=== PATIENT | female | born 1980 | race Caucasian/White ===

== ENCOUNTER 2018-09-06 12:54 | Observation (INO) | payer OTHER ==
[2018-09-06 14:35] LABS: PLATELET COUNT 337 10^3/uL (150-400)
--- NOTE | 2018-09-06 15:06 | EDPHY ---
HPI/HX/ROS/PE/MDM Narrative: The patient was evaluated and managed by the physician's surgeon's assistant. My cosignature indicates that I reviewed the chart and I agree with the findings and plan of care as documented. I am the secondary supervising physician. ( Justine López) CLINICAL IMPRESSION: Acute appendicitis ASSESSMENT/PLAN: 38-year-old female presents to the emergency department with approximately 24 hr of right lower quadrant abdominal pain associated with nausea, 1 episode of nonbilious nonbloody vomiting last night, diarrhea, and anorexia today. Vital signs stable, afebrile although she is tachycardic at 107. Ultrasound shows uterine leiomyomas, nonvisualized right ovary. No evidence of UTI and she is not . No leukocytosis, renal insufficiency, electrolyte imbalance. CT confirms mild appendicitis with no evidence of perforation or abscess. Discussed with Dr. Winters. Patient was started on antibiotics in the ED and he will assess the patient here. Kept NPO. Stable for admission to surgery for appendectomy. DIFFERENTIAL DX: Abdominal pain includes but not limited to urinary tract infection, pyelonephritis, infection, ectopic , salpingitis, TOA, ovarian torsion, ovarian cyst, endometriosis, uterine fibroids, acute appendicitis, acute diverticulitis, small-bowel obstruction, constipation ED PROCEDURES: See lab and/or imaging results below ED COURSE: 3:00 p.m.: Lab and urine studies discussed with the patient. She continues to decline IV analgesics. Will start with pelvic and abdominal ultrasound but I did discuss if these are negative I would recommend CT abdomen pelvis to rule out early appendicitis. Patient agrees 4:20 p.m.: Case discussed with Dr. Her from Radiology. No visualized right ovary or appendix. Patient has a large right adnexal uterine fibroid measuring 6.7 cm. Left ovary appears normal. Discussed results with patient. Will plan to CT to rule out underlying appendicitis. 5:00 p.m.: Discussed CT findings with Dr. Linares, positive for mild appendicitis, multiple uterine leiomyomas and numerous hypodensities in both kidneys. Patient made aware of results. She has been NPO since last night. She reports in a rash to penicillin but believe she has taken cephalosporins before. 5:05 p.m.: Discussed with Dr. Winters. He would like patient received 3 g of cefoxitin based on weight. She has been kept NPO. He will come to ED to evaluate. CHIEF COMPLAINT: Right lower quadrant abdominal pain HPI: 38-year-old female with a past medical history of hyperthyroidism and hypertension presents to the emergency department approximately 24 hr of right lower quadrant abdominal pain. This is associated with nausea, 1 episode of nonbilious nonbloody vomiting yesterday, decreased appetite and diarrhea. No reported fevers. Pain was not worsened by eating yesterday. Pain began in the abdomen and she has no associated flank pain or UTI symptoms. No abnormal discharge. She denies . No prior abdominal surgery. She has not taken anything for pain today but is refusing pain medications. She does report a history of kidney stones but reports this pain is very different. PAST MEDICAL HISTORY: Hyperthyroidism, hypertension, obesity, IBS, passed kidney stones See nurse/triage notes for additional history if applicable Pertinent Past Surgical History: None reported Family History: Noncontributory Social History: Nonsmoker, does not drink alcohol REVIEW OF SYSTEMS: All other systems negative Constitutional: No fever, no chills, positive for appetite change. Cardiovascular: No chest pain, no palpitations. Respiratory: No cough, no shortness of breath. Gastrointestinal: Positive for abdominal pain, no vomiting, positive for diarrhea. Genitourinary: No hematuria, dysuria, flank pain, pelvic pain Musculoskeletal: No back pain, joint swelling, joint pain, myalgias. Skin: No rashes, color change. PHYSICAL EXAM: General Appearance: Alert, oriented, appropriate, cooperative, NAD, well hydrated, non-toxic appearing, overweight, VSS, no hypoxia. HEENT: Oropharynx clear is no erythema or exudates, no tonsillar hypertrophy or asymmetry. Dentition without abnormality. Respiratory: There are no retractions, lungs are clear to auscultation. Cardiac: Regular rate and rhythm, no murmurs or gallops. Gastrointestinal: Abdomen is soft, tender to palpation of right lower quadrant, no rigidity or guarding, no rebound pain, bowel sounds normal, no masses/hernia , or focal peritoneal findings. No flank pain Neurological: Alert and oriented x 3, CN 2-12 grossly intact, MEDICAL DECISION MAKING: Patient was seen independently. Secondary supervising physician at time of evaluation was Dr. López. Diagnosis: Acute appendicitis. New, requires workup Summary: See Assessment and Plan for summary of ED visit Clinical lab tests: ordered / reviewed. Independent visualization of images, tracing, or specimens: Yes. Decision to obtain medical records or history from someone other than the patient: No Review / Summarize previous medical records: None available Discussed patient with another provider: Dr. López, Dr. Winters Patient Progress: Stable. (Fabian Guevara) - Data Points Imaging Results: Imaging Impressions Abdomen Ultrasound 09/06/18 15:02 Impression: Indeterminate study for appendicitis as a normal nor an abnormal appendix is visualized. Results called and discussed with Fabian Guevara on 09/06/2018 at 1615 hours. Pelvic/Renal Ultrasound 09/06/18 15:02 Impression: 6.7 cm soft tissue mass in the right adnexal region adjacent to the myometrium which could be an exophytic leiomyoma. Similar smaller lesion is seen in the left adnexal region measuring 3.6 cm. Right ovary is not visualized. Consider pelvic MRI without and with contrast for further evaluation. Results called and discussed with Fabian Guevara PA-C, at 09/06/2018 1610 hours. Laboratory Results: Laboratory Results 09/06/18 14:23 09/06/18 14:23 09/06/18 09/06/18 09/06/18 15:10 14:23 14:23 WBC RBC Hgb Hct MCV MCH MCHC RDW Plt Count MPV Neut % (Auto) Lymph % (Auto) [place] % (Auto) Eos % (Auto) Baso % (Auto) Nucleat RBC Rel Count Absolute Neuts (auto) Absolute Lymphs (auto) Absolute Monos (auto) Absolute Eos (auto) Absolute Basos (auto) Absolute Nucleated RBC Immature Gran % Immature Gran # Sodium 137 mEq/L mEq/L (135-145) Potassium 3.9 mEq/L mEq/L (3.5-5.2) Chloride 107 mEq/L mEq/L (97-110) Carbon Dioxide 18 mEq/l L mEq/l (22-31) Anion Gap 12 mEq/L mEq/L (6-14) BUN 8 mg/dL mg/dL (7-23) Creatinine 0.8 mg/dL mg/dL (0.6-1.0) Estimated GFR > 60 Glucose 113 mg/dL H mg/dL (70-100) Calcium 9.3 mg/dL mg/dL (8.5-10.4) Beta HCG, Qual NEGATIVE Urine Color YELLOW Urine Appearance CLEAR Urine pH 6.0 (5.0-7.5) Ur Specific [place] 1.011 (1.002-1.030) Urine Protein NEGATIVE (NEGATIVE) Urine Ketones NEGATIVE (NEGATIVE) Urine Blood NEGATIVE (NEGATIVE) Urine Nitrate NEGATIVE (NEGATIVE) Urine Bilirubin NEGATIVE (NEGATIVE) Urine Urobilinogen NEGATIVE EU EU (0.2-1.0) Ur Leukocyte Esterase NEGATIVE (NEGATIVE) Urine Glucose NEGATIVE (NEGATIVE) 09/06/18 14:23 WBC 8.96 10^3/uL 10^3/uL (3.80-9.50) RBC 5.54 10^6/uL H 10^6/uL (4.18-5.33) Hgb 14.9 g/dL g/dL (12.6-16.3) Hct 45.8 % % (38.0-47.0) MCV 82.7 fL fL (81.5-99.8) MCH 26.9 pg L pg (27.9-34.1) MCHC 32.5 g/dL g/dL (32.4-36.7) RDW 14.0 % % (11.5-15.2) Plt Count 337 10^3/uL 10^3/uL (150-400) MPV 10.1 fL fL (8.7-11.7) Neut % (Auto) 74.9 % H % (39.3-74.2) Lymph % (Auto) 17.4 % % (15.0-45.0) [place] % (Auto) 6.1 % % (4.5-13.0) Eos % (Auto) 1.0 % % (0.6-7.6) Baso % (Auto) 0.4 % % (0.3-1.7) Nucleat RBC Rel Count 0.0 % % (0.0-0.2) Absolute Neuts (auto) 6.70 10^3/uL H 10^3/uL (1.70-6.50) Absolute Lymphs (auto) 1.56 10^3/uL 10^3/uL (1.00-3.00) Absolute Monos (auto) 0.55 10^3/uL 10^3/uL (0.30-0.80) Absolute Eos (auto) 0.09 10^3/uL 10^3/uL (0.03-0.40) Absolute Basos (auto) 0.04 10^3/uL 10^3/uL (0.02-0.10) Absolute Nucleated RBC 0.00 10^3/uL 10^3/uL (0-0.01) Immature Gran % 0.2 % % (0.0-1.1) Immature Gran # 0.02 10^3/uL 10^3/uL (0.00-0.10) Sodium Potassium Chloride Carbon Dioxide Anion Gap BUN Creatinine Estimated GFR Glucose Calcium Beta HCG, Qual Urine Color Urine Appearance Urine pH Ur Specific [place] Urine Protein Urine Ketones Urine Blood Urine Nitrate Urine Bilirubin Urine Urobilinogen Ur Leukocyte Esterase Urine Glucose Medications Given: Discontinued Medications Sodium Chloride (Ns) 1,000 mls @ 0 mls/hr IV EDNOW ONE; Wide Open PRN Reason: Protocol Stop: 09/06/18 15:13 Last Admin: 09/06/18 15:18 Dose: 1,000 mls General Time Seen by Provider: 09/06/18 14:20 Initial Vital Signs: Initial Vital Signs Temperature (C) 36.6 C 09/06/18 13:13 Heart Rate 110 H 09/06/18 13:13 Respiratory Rate 16 09/06/18 13:13 Blood Pressure 137/115 H 09/06/18 13:13 O2 Sat (%) 98 09/06/18 13:13 O2 Delivery Mode Room Air Allergies/Adverse Reactions: Penicillins Allergy (Verified 12/29/18 13:13) Home Medications: Medication Instructions Recorded Atenolol 09/06/18 Blisovi 24 Fe Tablet 09/06/18 Escitalopram Oxalate 09/06/18 Omeprazole 09/06/18 Departure - Departure Disposition: [facility] Inpatient Acute Clinical Impression: Acute appendicitis Qualifiers: Acute appendicitis type: with localized peritonitis Appendicitis gangrene presence: without gangrene Appendicitis perforation presence: without perforation Appendicitis abscess presence: without abscess Qualified Code(s): K35.30 - Acute appendicitis with localized peritonitis, without perforation or gangrene Condition: Good Referrals: Fauzia Bowles MD [Primary Care Provider] - As per Instructions
[2018-09-06] MEDS ORDERED: NS 1,000 ML IV ONE ×2 (15:12→20:18)
[2018-09-06] MEDS ORDERED: IOPAMIDOL (ISOVUE 370) 100 ML BTL IV ONE (16:22)
[2018-09-06] MEDS ORDERED: NS IV ONE (17:06)
[2018-09-06] MEDS ORDERED: CEFOXITIN SODIUM IV ONE (17:06)
[2018-09-06] MEDS ORDERED: IBUPROFEN 600 MG TAB PO PRN (17:42)
[2018-09-06] MEDS ORDERED: ACETAMINOPHEN 500 MG TAB PO PRN (17:42)
[2018-09-06] MEDS ORDERED: LR 1,000 ML IV SCH (18:00)
--- NOTE | 2018-09-06 18:14 | PDGENHP ---
History and Physical - Chief Complaint abdominal pain - History of Present Illness 38 y/o female presented to the ED with abdominal pain localizing to the RLQ. She reports anorexia and nausea, but no emesis or diarrhea. She denies fever. She was seen in the ED by Fabian Guevara PA-C and surgical consultation was requested when an abdominal CT showed an enlarged appendix. She has not received narcotics in the ED and felt a little better after receiving IV fluids. History Information - Allergies/Home Medication List Allergies/Adverse Reactions: Penicillins Allergy (Mild, Verified 09/06/18 18:14) Rash Home Medications: Atenolol 09/06/18 [Last Taken Unknown] Blisovi 24 Fe Tablet 09/06/18 [Last Taken Unknown] Escitalopram Oxalate 09/06/18 [Last Taken Unknown] Omeprazole 09/06/18 [Last Taken Unknown] I have personally reviewed and updated: family history, medical history, social history, surgical history - Past Medical History hypertension, psychiatric history (depression) Additional medical history: LMP 08/12/18 - Surgical History Additional surgical history: ankle surgery - Family History Positive for: non-pertinent - Social History Smoking Status: Never smoked Alcohol Use: Occasionally (occasionally) Drug Use: Marijuana 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 Review of Systems Review of Systems: Constitutional: Reports: fever (denies) Gastrointestinal: Reports: abdominal pain, nausea Genitourinary: Reports: no symptoms Neurological: Reports: depressed Physical Exam Physical Exam: Temp Pulse Resp BP Pulse Ox 36.6 C 113 H 18 146/89 H 95 09/06/18 13:13 09/06/18 17:28 09/06/18 17:28 09/06/18 17:28 09/06/18 17:28 Constitutional: appears nourished Eyes: anicteric sclera Cardiovascular: regular rate and rhythym, tachycardia Peripheral Pulses: 4+: dorsalis-pedis (R), dorsalis-pedis (L) Respiratory: no respiratory distress, no rales or rhonchi, clear to auscultation Gastrointestinal: normoactive bowel sounds, tenderness (R mid abdomen mild tenderness to deep palpation, no guarding) Skin: warm, normal color, no rashes or abrasions Neurologic: AAOx3 Psychiatric: interacting appropriately, not anxious, not encephalopathic Lymph, Heme, Immunologic: no cervical LAD, no supraclavicular LAD Lab Data & Imaging Review 09/06/18 14:23 09/06/18 14:23 WBC 8.96 10^3/uL (3.80-9.50) 09/06/18 14:23 RBC 5.54 10^6/uL (4.18-5.33) H 09/06/18 14:23 Hgb 14.9 g/dL (12.6-16.3) 09/06/18 14:23 Hct 45.8 % (38.0-47.0) 09/06/18 14:23 MCV 82.7 fL (81.5-99.8) 09/06/18 14:23 MCH 26.9 pg (27.9-34.1) L 09/06/18 14:23 MCHC 32.5 g/dL (32.4-36.7) 09/06/18 14:23 RDW 14.0 % (11.5-15.2) 09/06/18 14:23 Plt Count 337 10^3/uL (150-400) 09/06/18 14:23 MPV 10.1 fL (8.7-11.7) 09/06/18 14:23 Neut % (Auto) 74.9 % (39.3-74.2) H 09/06/18 14:23 Lymph % (Auto) 17.4 % (15.0-45.0) 09/06/18 14:23 [place] % (Auto) 6.1 % (4.5-13.0) 09/06/18 14:23 Eos % (Auto) 1.0 % (0.6-7.6) 09/06/18 14:23 Baso % (Auto) 0.4 % (0.3-1.7) 09/06/18 14:23 Nucleat RBC Rel Count 0.0 % (0.0-0.2) 09/06/18 14:23 Absolute Neuts (auto) 6.70 10^3/uL (1.70-6.50) H 09/06/18 14:23 Absolute Lymphs (auto) 1.56 10^3/uL (1.00-3.00) 09/06/18 14:23 Absolute Monos (auto) 0.55 10^3/uL (0.30-0.80) 09/06/18 14:23 Absolute Eos (auto) 0.09 10^3/uL (0.03-0.40) 09/06/18 14:23 Absolute Basos (auto) 0.04 10^3/uL (0.02-0.10) 09/06/18 14:23 Absolute Nucleated RBC 0.00 10^3/uL (0-0.01) 09/06/18 14:23 Immature Gran % 0.2 % (0.0-1.1) 09/06/18 14:23 Immature Gran # 0.02 10^3/uL (0.00-0.10) 09/06/18 14:23 Sodium 137 mEq/L (135-145) 09/06/18 14:23 Potassium 3.9 mEq/L (3.5-5.2) 09/06/18 14:23 Chloride 107 mEq/L (97-110) 09/06/18 14:23 Carbon Dioxide 18 mEq/l (22-31) L 09/06/18 14:23 Anion Gap 12 mEq/L (6-14) 09/06/18 14:23 BUN 8 mg/dL (7-23) 09/06/18 14:23 Creatinine 0.8 mg/dL (0.6-1.0) 09/06/18 14:23 Estimated GFR > 60 09/06/18 14:23 Glucose 113 mg/dL (70-100) H 09/06/18 14:23 Calcium 9.3 mg/dL (8.5-10.4) 09/06/18 14:23 Beta HCG, Qual NEGATIVE 09/06/18 14:23 Urine Color YELLOW 09/06/18 15:10 Urine Appearance CLEAR 09/06/18 15:10 Urine pH 6.0 (5.0-7.5) 09/06/18 15:10 Ur Specific [place] 1.011 (1.002-1.030) 09/06/18 15:10 Urine Protein NEGATIVE (NEGATIVE) 09/06/18 15:10 Urine Ketones NEGATIVE (NEGATIVE) 09/06/18 15:10 Urine Blood NEGATIVE (NEGATIVE) 09/06/18 15:10 Urine Nitrate NEGATIVE (NEGATIVE) 09/06/18 15:10 Urine Bilirubin NEGATIVE (NEGATIVE) 09/06/18 15:10 Urine Urobilinogen NEGATIVE EU (0.2-1.0) 09/06/18 15:10 Ur Leukocyte Esterase NEGATIVE (NEGATIVE) 09/06/18 15:10 Urine Glucose NEGATIVE (NEGATIVE) 09/06/18 15:10 Visualized and Interpreted imaging results: Yes Interpretation: CT scan reviewed, mild dilatation of the appendix without fecalith/minimal amanda-appendiceal fat stranding, no free air, no free fluid Assessment & Plan Assessment: Acute appendicitis (Acute) HTN obesity (BMI 39.9) We discussed the findings on CT and the management options including laparoscopic appendectomy vs. antibiotics. She is an ideal candidate for non- operative management with antibiotics as she has early appendicitis without an appendicolith, normal wbc and no fever. She would like to avoid surgery if possible. I recommended she be admitted overnight for IV antibiotic therapy and observation. If she progresses in her symptoms I would recommend proceeding with surgery. We discussed the success rate of antibiotic therapy and the risk of failure (25%). If she is improved in the morning I would recommend completing therapy as an outpatient with one full week of po antibiotics. Plan: Admit observation IV Mefoxin 2 gm IVPB [id number] when sufficiently improved will DC home with po Levaquin and Radha Winters MD, FACS
[2018-09-06] MEDS: cefOXitin SODIUM 2 GM in NS 100 ML IV SCH (23:46)
[2018-09-06] MEDS: PANTOPRAZOLE SODIUM 40 MG TAB PO SCH (23:47)
[2018-09-06] MEDS: ATENOLOL 25 MG TAB PO SCH (23:47)
[2018-09-07 05:02] LABS: PLATELET COUNT 301 10^3/uL (150-400)
[2018-09-07] MEDS: cefOXitin SODIUM 2 GM in NS 100 ML IV SCH (05:27)
--- NOTE | 2018-09-07 08:38 | PDDCSUM ---
Discharge Summary Discharge Summary: #[id number] Naveen Winters MD, FACS
[2018-09-07] MEDS: ATENOLOL 25 MG TAB PO SCH (08:56)
[2018-09-07] MEDS: PANTOPRAZOLE SODIUM 40 MG TAB PO SCH (08:56)
[2018-09-07] MEDS ORDERED: ESCITALOPRAM OXALATE 10 MG TAB PO SCH (09:00)
--- NOTE | 2018-09-07 09:02 | ASMTLACE ---
LACE Length of stay for Answers: Less than 1 day current admission Acuity / Level of Answers: No Care: Did the patient have an inpatient admission? # of Emergency department Answers: 1-2 visits in the last 6 months Score: 1 Date Signed: 09/07/2018 09:02 AM Electronically Signed By:Nani Olivera RN
--- NOTE | 2018-09-07 09:04 | ASMTDCNOTE ---
Case Management Discharge Discharge Order Complete? Answers: Yes Patient to Obtain Answers: Independently Medications Transportation Arranged Answers: Family/Friends Discharge Comments Notes: Chart reviewed. 38 year old female admitted for appendectomy. Medically cleared for discharge to home. No needs. Date Signed: 09/07/2018 09:04 AM Electronically Signed By:Nani Olivera RN
--- NOTE | 2018-09-07 09:52 | GDS ---
DISCHARGE DIAGNOSES: 1. Acute appendicitis. 2. Hypertension. 3. Obesity. 4. History of depression. 5. Gastroesophageal reflux disease. PROCEDURE PERFORMED: 1. 09/06, ultrasound of the abdomen and pelvis. 2. 09/06. CT scan of the abdomen and pelvis. HOSPITAL COURSE: For details of admission history and physical, please see dictated summary. Briefly, patient is a 38-year-old female presented with 1- day history of abdominal pain. She was seen and evaluated in the emergency room by Fabian Guevara PA-C, and evaluation included ultrasound of the abdomen, pelvis, and up and subsequently a CT scan when the appendix was non-visualized. This showed early acute appendicitis without fecalith. Surgical consultation was requested. The patient was afebrile, showed normal white blood cell count, and had mild focal tenderness in the right lateral abdomen. I discussed the options of management with her, including surgical appendectomy (laparoscopic) versus antibiotics. Patient was hoping to avoid surgery and chose to be treated with antibiotics. She received 3 g of cefoxitin (Mefoxin) in the emergency department and this was continued at 2 g every 6 hours. She was admitted for observation overnight. She was advanced in her diet, which she tolerated well. Her pain was improved the following morning, and she continued to be afebrile and had a normal white blood cell count prior to discharge. She was switched to oral Levaquin and Flagyl because of a penicillin allergy, and this will continue for an additional 7 days. I gave her my contact information. She will call my office tomorrow for a followup appointment in approximately 1 week and will contact us sooner should she develop increasing abdominal pain, fever, nausea, vomiting. CONDITION AT TIME OF DISCHARGE: Improved. FOLLOWUP: Arranged in 1 week. DISCHARGE MEDICATIONS: Levaquin 750 mg p.o. daily x7 days, metronidazole 500 mg t.i.d. for 7 days. She will resume omeprazole 40 mg p.o. daily, atenolol 25 mg p.o. daily, and alternate Tylenol and ibuprofen for pain. Patient required no narcotic analgesics during her hospital stay. /[id number]/MODL MTDD
[2018-09-07] MEDS ORDERED: metroNIDAZOLE 500 MG TAB PO SCH (14:00)
[2018-09-07 14:38] VITALS: BP 120/78
== END 2018-09-07 15:41 | disposition home or self-care (01) ==
LOC: F1N 18:27
PROVIDERS: ADMIT Surgery; ATTEND Surgery
DX: K35.80 Unspecified acute appendicitis (principal); R93.89 Abnormal findings on diagnostic imaging of other specified body structures; I10 Essential (primary) hypertension; E03.9 Hypothyroidism, unspecified; E66.9 Obesity, unspecified; Z68.39 Body mass index [BMI] 39.0-39.9, adult; F32.9 Major depressive disorder, single episode, unspecified; K21.9 Gastro-esophageal reflux disease without esophagitis; Z87.442 Personal history of urinary calculi; Z88.0 Allergy status to penicillin
CPT/HCPCS: 74177; 76705; 76856; G0378; 96365; J0694; Q9967